=== PATIENT | female | born 1960 | race Caucasian/White ===

== ENCOUNTER 2019-07-31 14:57 | Emergency (ER) | payer OTHER, SELFPAY ==
[2019-07-31 15:07] VITALS: BP 109/77; PULSE 87; RESP 22; TEMP 38.2; O2SAT 97
--- NOTE | 2019-07-31 15:20 | ED.GENADULT ---
HPI - General Adult General Chief complaint: Upper Respiratory Infection Stated complaint: chest pressure/cough Time Seen by Provider: 07/31/19 15:20 Source: patient and RN notes reviewed Mode of arrival: ambulatory Limitations: no limitations History of Present Illness HPI narrative: This is a 59 years old female presented to the office for evaluation of cough for 4-day. Symptoms began with head congestion which moved down quickly to her chest. She also reports chest tightness when she cough. She did receive influenza vaccine for the season. She is smoke occasionally about 4 to 5 cigarettes a day. She does not have any sick contact at home. She take Robitussin-DM for her cough. Related Data Home Medications Medication Instructions Recorded Confirmed lamotrigine 100 mg PO DIRECTED 07/31/19 07/31/19 Allergies Allergy/AdvReac Type Severity Reaction Status Date / Time Sulfa (Sulfonamide Allergy Mild Rash Verified 06/09/17 00:25 Antibiotics) MEPERIDINE HCL Allergy Unknown Itching Uncoded 07/31/19 15:02 SULFA Allergy Unknown Rash Uncoded 07/31/19 15:02 Review of Systems Review of Systems: Narrative: CONSTITUTIONAL: Denies fever. Reports generalize achy ENT: Reports slight head congestion/headache CARDIOVASCULAR: Denies chest pain RESPIRATORY:Reports cough with phlegm and chest tightness GASTROINTESTINAL: Denies abdominal pain, nausea, vomiting, diarrhea. GENITOURINARY: Denies urinary symptoms or discharge SKIN: Denies rash MUSCULOSKELETAL: Denies acute back pain NEUROLOGIC: Denies lightheaded PMFSH Past Medical History Medical History Epilepsy HLD (hyperlipidemia) HTN (hypertension) Social History Social History Smoking status: Current every day smoker Comments At time of signature, I agree with nursing past medical, surgical, social and family history. There is no relevant family history pertinent to the presenting complaint. Exam Narrative: Exam Narrative: GENERAL: This is a well-nourished, well-developed patient, in no apparent distress. EYES:Sclera clear/white. Vision is grossly intact. EARS: External ears normal, auditory canals clear and without drainage, TMs normal without perforation. Hearing grossly intact. NOSE: External nose normal with no obvious nasal discharge, nares without redness, no rhinorrhea. THROAT: Mucous membranes moist, posterior pharynx clear. NECK: Neck supple, non-tender without lymphadenopathy, masses or thyromegaly. CARDIOVASCULAR: Regular rate and rhythm without murmurs, gallops, or rubs. RESPIRATORY: Clear to auscultation except in the right lowerlobe noted wheezing with inspiration and clear after she coughs . Breath sounds equal bilaterally. No wheezes, rales, or rhonchi. GASTROINTESTINAL: Abdomen soft, non-tender, nondistended. Bowel sounds are active. No guarding. SKIN: warm, intact with no suspicious lesions or rash, good texture and turgor. NEURO: awake, alert, and oriented to person, place and time. There were no obvious focal neurologic abnormalities. Steady gait [place] Coma Scale Eye Opening: Spontaneous 4 [place] Coma Scale Motor: Obeys Commands 6 Marcela Coma Scale Verbal: Oriented 5 Course Vital Signs Vital signs: Vital Signs Temperature 100.7 F H 07/31/19 15:07 Pulse Rate 87 07/31/19 15:07 Respiratory Rate 22 H 07/31/19 15:07 Blood Pressure 109/77 07/31/19 15:07 Pulse Oximetry 97 07/31/19 15:07 Temperature 100.7 F H 07/31/19 15:07 Pulse Rate 87 07/31/19 15:07 Respiratory Rate 22 H 07/31/19 15:07 Blood Pressure 109/77 07/31/19 15:07 Pulse Oximetry 97 07/31/19 15:07 Medical Decision Making MDM Narrative Medical decision making narrative: Discharge instructions reviewed with patient, as well as provided in writing per nursing staff. The instructions also include specific and strict return/GO TO THE
== END 2019-07-31 15:37 | disposition home or self-care (01) ==
PROVIDERS: Emergency Provider Nurse Practitioner; PCP Internal Medicine
DX: J11.1 Influenza due to unidentified influenza virus with other respiratory manifestations (principal); I10 Essential (primary) hypertension; E78.5 Hyperlipidemia, unspecified; G40.909 Epilepsy, unspecified, not intractable, without status epilepticus; F17.210 Nicotine dependence, cigarettes, uncomplicated
CPT/HCPCS: 87804; 99213; G0463